=== PATIENT | female | born 1945 | race African-American/Black ===

== ENCOUNTER 2022-03-28 02:29 | Inpatient (IN) ==
[2022-03-28] MEDS ORDERED: ONDANSETRON 4 MG/2 ML VIAL IV STA (02:54)
[2022-03-28 03:49] LABS: Basophils # 0.1 10*3/uL (0.0-0.2); Basophils % 1.2 % (0.0-0.8); Eosinophils # 0.2 10*3/uL (0.0-0.87); Eosinophils % 3.9 % (0.00-10.9); Hematocrit 35.1 VOL% (35.7-47.0); Immature Granulocytes % 0.2 %; Immature Granulocytes Absolute 0.01 #; Lymphocytes # 1.5 10*3/uL (1.4-4.0); Lymphocytes % 30.3 % (21.3-54.2); Mean Corpuscular HGB Conc 31.3 GM/DL (32-36); Mean Platelet Volume 9.6 FL (9.6-12.0); Monocytes # 0.8 10*3/uL (0.11-0.8); Neutrophils % 49.4 % (38.7-73.9); Platelet Count 290 T/CUMM (130-400); Red Blood Count 4.08 MC/CUMM (3.8-5.5); Red Cell Distribution Width 13.4 % (9.3-17.3); White Blood Count 5.1 T/CUMM (4-12)
[2022-03-28 03:50] LABS: Barbiturates Screen,Urine Negative (Negative); Benzodiazepines Screen,Urine Negative (Negative); Cannabinoid Screen,Urine Negative (Negative); Opiate Screen,Urine Negative (Negative); Phencyclidine Screen,Urine Negative (Negative)
[2022-03-28 03:54] LABS: Bacteria,Urine Occasional /HPF (Few); Hyaline Casts,Urine 3 /LPF (0-3); Mucus,Urine Occasional /LPF (Occasional); RBC,Urine 4 /HPF (0-4); Squamous Epithelial Cell,Urine Occasional /HPF (0-10)
[2022-03-28 03:58] LABS: Bilirubin,Urine Negative (Negative); Glucose,Urine (UA) Negative (Negative); Ketones,Urine Negative (Negative); Nitrite,Urine Negative (Negative); Protein,Urine Negative (Negative); Urine Appearance Clear (Clear); Urine Color Yellow (Yellow); Urine pH 5.5 (4.5-8.0)
[2022-03-28 03:59] LABS: Blood, Urine Negative (Negative); Urine Urobilinogen 0.2 eU/dL (<2.0)
[2022-03-28 03:59] LABS: PT Patient Result 11.4 SECS (10.5-12.0); Partial Thromboplastin Time 30.1 SECS (23.8-32.1)
[2022-03-28 04:22] LABS: Albumin 3.7 G/DL (3.4-5.0); Bilirubin,Total 0.4 MG/DL (0.20-1.00); Calcium 9.2 MG/DL (8.5-10.1); Osmolality,Calculated 285.3 MOS/KG (273-304); Total Protein 7.3 G/DL (6.4-8.2)
[2022-03-28] MEDS ORDERED: LABETALOL 20 MG/4 ML SYRINGE IV PRN (04:34)
[2022-03-28 05:03] LABS: Risk Ratio 2.65; VLDL Cholesterol 17.4 MG/DL
[2022-03-28] MEDS: ALBUTEROL 2.5 MG/3 ML NEB RESP TX SCH ×4 (07:31→19:00)
[2022-03-28] MEDS: APIXABAN 2.5 MG TABLET PO SCH ×2 (09:19→20:21)
[2022-03-28] MEDS: GABAPENTIN 600 MG TABLET PO SCH ×3 (09:19→20:22)
[2022-03-28] MEDS: ATORVASTATIN 40 MG TABLET PO SCH (09:19)
[2022-03-28] MEDS: FLUTICASONE/SALMETEROL 250-50 DISKUS 14 DOSE INH SCH ×2 (09:19→20:56)
[2022-03-28] MEDS: carvediloL 3.125 MG TABLET PO SCH (20:22)
[2022-03-28] MEDS: SUCRALFATE 1 GM TABLET PO SCH (23:28)
[2022-03-29] MEDS: SUCRALFATE 1 GM TABLET PO SCH ×3 (05:42→17:23)
[2022-03-29] MEDS: ALBUTEROL 2.5 MG/3 ML NEB RESP TX SCH ×4 (07:15→19:02)
[2022-03-29] MEDS: APIXABAN 2.5 MG TABLET PO SCH ×2 (08:30→21:06)
[2022-03-29] MEDS: ASPIRIN CHEW 81 MG TABLET PO SCH (08:30)
[2022-03-29] MEDS: FLUTICASONE/SALMETEROL 250-50 DISKUS 14 DOSE INH SCH ×2 (08:31→21:08)
[2022-03-29] MEDS: ATORVASTATIN 40 MG TABLET PO SCH (08:31)
[2022-03-29] MEDS: GABAPENTIN 600 MG TABLET PO SCH ×3 (08:31→21:06)
[2022-03-29] MEDS: carvediloL 3.125 MG TABLET PO SCH (21:06)
[2022-03-30] MEDS: SUCRALFATE 1 GM TABLET PO SCH ×3 (00:17→13:46)
[2022-03-30] MEDS: ALBUTEROL 2.5 MG/3 ML NEB RESP TX SCH ×2 (07:10→10:05)
[2022-03-30 08:52] LABS: Basophils # 0.1 10*3/uL (0.0-0.2); Basophils % 1.2 % (0.0-0.8); Eosinophils # 0.2 10*3/uL (0.0-0.87); Eosinophils % 5.3 % (0.00-10.9); Hematocrit 36.3 VOL% (35.7-47.0); Hemoglobin 11.6 GM/DL (12.0-16.0); Immature Granulocytes % 0.7 %; Immature Granulocytes Absolute 0.03 #; Lymphocytes # 1.4 10*3/uL (1.4-4.0); Lymphocytes % 34.6 % (21.3-54.2); Mean Corpuscular Volume 84.4 FL (87-102); Mean Platelet Volume 9.6 FL (9.6-12.0); Monocytes # 0.5 10*3/uL (0.11-0.8); Monocytes % 11.3 % (1.7-12.7); Neutrophils % 46.9 % (38.7-73.9); Platelet Count 310 T/CUMM (130-400); Red Cell Distribution Width 13.4 % (9.3-17.3); White Blood Count 4.2 T/CUMM (4-12)
[2022-03-30 09:06] LABS: Calcium 8.8 MG/DL (8.5-10.1); Osmolality,Calculated 284.1 MOS/KG (273-304); Potassium 3.9 MMOL/L (3.5-5.1)
[2022-03-30] MEDS: GABAPENTIN 600 MG TABLET PO SCH (09:28)
[2022-03-30] MEDS: ATORVASTATIN 40 MG TABLET PO SCH (09:28)
[2022-03-30] MEDS: APIXABAN 2.5 MG TABLET PO SCH (09:28)
[2022-03-30] MEDS: FLUTICASONE/SALMETEROL 250-50 DISKUS 14 DOSE INH SCH (09:28)
[2022-03-30] MEDS: ASPIRIN CHEW 81 MG TABLET PO SCH (09:28)
[2022-03-30] MEDS ORDERED: MAGNESIUM SULF RIDER 2 GM/50 ML PREMIX IV ONE (11:18)
[2022-03-30 12:33] VITALS: BP 126/48
== END 2022-03-30 13:52 | disposition home health service (06) | DRG 66 ==
LOC: EDUNIT# → EDBD → N.ED 02:29 → N.EDINP 02:29 → SUATTDRO 04:34 → N.5E 16:05
PROVIDERS: ADMIT Internal Medicine; ATTEND Emergency Medicine